=== PATIENT | female | born 1930 | race Caucasian/White ===

== ENCOUNTER 2019-04-19 13:18 | Inpatient (IN) | payer OTHER ==
[~2019-04-19] VITALS: Ht 170.2 cm; Wt 59.0 kg
[~2019-04-19 13:18] MED LIST: AMITIZA 24 MCG24 MC1 PO; AMITIZA8 MCG PO; AMLODIPINE BESYL5 MG PO; BETHANECHOL 5MG5 MG PO; BLOOD PRESURE; CIPRO250 M1 PO; COLACE100 MG PO; EFFEXOR XR75 MG PO; FLAGYL500 MG PO; IBUPROFEN 400400 M2 PO; LEVOTHYROXIN0.075 MG PO; MILK OF MA2400 MG/10 PO; MIRALAX17 GM PO; NASONEX17 GM NASAL; NORCO 5-325 TA1 EACH PO; PROTONIX40 M4 PO; VENLAFAXIN75 MG/1 T2 PO
[2019-04-19 13:20] VITALS: BP 135/75
[2019-04-19 14:58] LABS: ABSOLUTE NEUTROPHILS 11.3 thou/uL (1.4-8.2); BASOPHILS 1.6 % (0.0-2.0); EOSINOPHILS 1.2 % (0.0-3.0); HEMATOCRIT 40.7 % (37.0-47.0); HEMOGLOBIN 13.6 gm/dL (12.0-15.0); MCH 30.9 pg (26.0-34.0); MCHC 33.3 g/dL (28.0-37.0); MCV 92.6 fL (80.0-100.0); MONOCYTES 4.6 % (1.0-8.0); PLATELET COUNT 386 thou/uL (150-400); POLYS 82.6 % (36.0-66.0); RBC 4.39 mil/uL (4.20-5.00); RDW 13.6 % (10.5-14.5); WBC 13.6 thou/uL (4.0-11.0)
[2019-04-19 15:07] LABS: CALCIUM 8.9 mg/dL (8.5-10.1); CREATININE 0.8 mg/dL (0.6-1.0); POTASSIUM 3.7 mmol/L (3.5-5.1)
[2019-04-19 20:34] VITALS: BP 144/75
[2019-04-19 23:45] VITALS: BP 142/70
[2019-04-19 23:55] VITALS: BP 149/90
--- NOTE | 2019-04-20 01:29 | NUR ---
ASSUMED CARE OF PATIENT FROM ER. PATIENT ABLE TO DRINK HALF OF THE BOWEL PREP, HAVING LOOSE STOOLS IN BEDSIDE COMMODE. ABLE TO ANSWER ADMISSION QUESTIONS. NO BLOOD NOTED IN BOWEL MOVEMENT. NPO AFTER MIDNIGHT. POC GOALS ESTABLISHED. WILL CONTINUE TO MONITOR.
[2019-04-20 04:45] VITALS: BP 137/79
[2019-04-20 04:55] VITALS: BP 137/79
[2019-04-20 05:13] LABS: ABSOLUTE NEUTROPHILS 9.7 thou/uL (1.4-8.2); BASOPHILS 0.6 % (0.0-2.0); EOSINOPHILS 2.3 % (0.0-3.0); HEMATOCRIT 37.7 % (37.0-47.0); HEMOGLOBIN 12.7 gm/dL (12.0-15.0); LYMPHOCYTES 11.4 % (24.0-44.0); MCHC 33.6 g/dL (28.0-37.0); MCV 92.2 fL (80.0-100.0); MONOCYTES 6.4 % (1.0-8.0); PLATELET COUNT 385 thou/uL (150-400); POLYS 79.3 % (36.0-66.0); RBC 4.09 mil/uL (4.20-5.00); RDW 13.5 % (10.5-14.5); WBC 12.2 thou/uL (4.0-11.0)
[2019-04-20 05:34] LABS: CALCIUM 8.5 mg/dL (8.5-10.1); CREATININE 0.7 mg/dL (0.6-1.0); MAGNESIUM 1.9 mg/dL (1.8-2.4); POTASSIUM 3.9 mmol/L (3.5-5.1)
[2019-04-20 08:00] VITALS: BP 169/88
--- NOTE | 2019-04-20 12:37 | NUR ---
INITIAL ASSESSMENT: Pt evaluated for d/c planning needs. Reviewed chart and spoke with nurse, pt and spouse. Pt lives in house with spouse and was independent with ADL's. Pt states she is normally in her motorized w/c. Pt states she also has a walker at home. Spouse does most of the cooking because pt is not able to stand to cook. Pt said she had home health in the past, but does not recall name of company. Pt plans on returning home on d/c from hospital. Will remain available to assist as needed.
--- NOTE | 2019-04-20 17:00 | EKG ---
[address] [employer] [place] [address] ELECTROCARDIOGRAM REPORT Name: ZACKERY NOBLE Room #: 443-P ADM IN M.R.#: [id number] Admission: 04/19/19 Attend Phys: Angus Rosas MD Discharge: Date of : [birth year] Report #: [id number] THIS REPORT FOR: //name// [facility] ED Test Date: 2019-04-19 Test Time: 14:15:33 Pat Name: ZACKERY NOBLE Department: Room: [facility] Gender: F Upsetter: WG : 1930 Requested By: Joni Scanlon Order Number: [id number] MD: Aron Atkinson Measurements Intervals [place] Rate: 90 P: 46 TX: 210 QRS: 1 QRSD: 69 T: 147 QT: 412 QTc: 504 Interpretive Statements Sinus rhythm Ventricular premature complex early transition Nonspecific ST/T abnormalities, lateral leads No previous ECG available for comparison Electronically Signed On 04-20-2019 17:00:42 CDT by Aron Atkinson [email or web address] <ELECTRONICALLY SIGNED> By: Aron Atkinson MD 04/20/19 1700 1415 1415 Aron Atkinson MD /HITESH
[2019-04-20 19:45] VITALS: BP 146/75
[2019-04-21 03:20] VITALS: BP 142/76
--- NOTE | 2019-04-21 04:19 | NUR ---
PATIENT ALERT AND ORIENTED X4. DENIES PAIN. IVF INFUSING W/O COMPLICATION. NO BLOOD NOTED. VOIDING PER BEDSIDE COMMODE. COOPERATIVE WITH CARE. WILL MONITOR.
[2019-04-21 07:29] VITALS: BP 179/98
--- NOTE | 2019-04-21 10:48 | NUR ---
PATIENT IN BED HOB UP 30 DEGREES. ATE 100 %OF BREAKFAST. NO PAIN OR RESP DISTRESS AT THIS TIME. AT BEDSIDE. PT WANTS TO DISCHARGE TO HOME. AWAITING DR JORDAN TO SEE PATIENT THIS AM. DR BAUER HERE THIS AM BUT WANTS DR JORDAN TO SEE PATIENT AND LET THIS NURSE KNOW IF PATIENT CAN DISCHARGE.
[2019-04-21] MEDS ORDERED: NORVASC10 MG PO (13:25)
[2019-04-21 13:29] VITALS: BP 179/98
[2019-04-21 13:31] VITALS: BP 179/98
[2019-04-21 13:43] VITALS: BP 179/98
--- NOTE | 2019-04-21 13:48 | NUR ---
DISCHARGE PAPERS GONE OVER WITH PATIENT SIGNED AND COPY IN CHART. IV ACSESS DCD. RX GIVEN TO PATIENT. ALL BELONGINGS PACKED AND SENT WITH PATIENT. LEFT W/C WITH DROP WIRER AND SPOUSE TO FAMILY CAR. NO PAIN OR RESP DISTRESS NOTED AT DISCHARGE
--- NOTE | 2019-04-24 17:06 | PATH ---
[facility] [address] [place] [address] PATHOLOGY RPT PROCEDURE Name: CAROL NOBLE Room #: 443-P DIS IN M.R.#: [id number] Admission: 04/19/19 Date of : [birth year] Discharge: 04/21/19 Report #: [id number] Path Case #: [id number] [facility] Accession Number: [id number] . 01 Material submitted: . colon - BIOPSY OF INFLAMMATION OF HEPATIC FLEXURE TO DESCENDING COLON . 01 Clinical history: . Internal hemorrhoids and ischemic colitis . 02 Diagnosis: Large intestinal mucosa, inflammation from hepatic flexure to descending colon, endoscopic biopsy: - Changes compatible with ischemic colitis, see comment. - Negative for dysplasia or malignancy. (IUV:video game engineer; 04/24/2019) MBR 04/24/2019 1419 Local . 02 Comment: Examination shows scattered foci of denuded surface epithelium, regenerative epithelial atypia where intact overlying a markedly fibrotic lamina propria. The crypts appear atrophic. Fibrin thrombi are not identified within the vessels. There are no explosive ulcers present as well. Overall, findings are compatible with ischemic colitis with patchy involvement. There is no dysplasia or malignancy present. Please correlate clinically. (IUV:video game engineer; 04/24/2019) . 02 Electronically signed: . Navya Prakash MD, Pathologist NPI- [id number] . 01 Gross description: . The specimen is received in formalin, labeled "Carol Noble, BX of inflammation hepatic flexure to descending colon" and consists of multiple fragments of wright tissue measuring 1.5 x 0.8 x 0.2 cm in aggregate which are entirely submitted in A1. (SDY; 04/23/2019) SYU/SYU 04/23/2019 1456 Local . 02 Pathologist provided ICD-10: K52.9 . 02 CPT . 527397 Specimen Comment: A courtesy copy of this report has been sent to [phone] Specimen Comment: [place] [address] PATHOLOGY RPT PROCEDURE Name: CAROL NOBLE Room #: 443-P DIS IN M.R.#: [id number] Admission: 04/19/19 Date of : [birth year] Discharge: 04/21/19 Report #: [id number] Path Case #: [id number] Performed at: [address], [place], [place] [id number] MD Harris Jc MD Phone: [phone] Performed at: [address] [id number] MD Navya Prakash MD Phone: [phone]
== END 2019-04-21 13:56 | disposition home or self-care (01) | DRG 378 ==
LOC: ER 13:18 → EROBS 16:25 → 4S 16:25
PROVIDERS: Emergency Medicine; Nurse Practitioner; ADMIT Internal Medicine
PROC: 0DBL8ZX Excision of Transverse Colon, Via Natural or Artificial Opening Endoscopic, Diagnostic (ICD-10-PCS; principal; 2019-04-20)
DX: K92.2 Gastrointestinal hemorrhage, unspecified (principal); K55.9 Vascular disorder of intestine, unspecified; E87.1 Hypo-osmolality and hyponatremia; I10 Essential (primary) hypertension; E03.9 Hypothyroidism, unspecified; M19.90 Unspecified osteoarthritis, unspecified site; K21.9 Gastro-esophageal reflux disease without esophagitis; K58.1 Irritable bowel syndrome with constipation; F32.9 Major depressive disorder, single episode, unspecified; Z96.1 Presence of intraocular lens; Z98.41 Cataract extraction status, right eye; Z98.42 Cataract extraction status, left eye; Z90.710 Acquired absence of both cervix and uterus; Z88.0 Allergy status to penicillin; Z88.2 Allergy status to sulfonamides; Z87.11 Personal history of peptic ulcer disease; Z90.49 Acquired absence of other specified parts of digestive tract
CPT/HCPCS: 10195; 62110; 62900; 70005

== ENCOUNTER 2019-07-08 15:03 | Emergency (ER) | payer OTHER ==
[~2019-07-08] VITALS: Ht 170.2 cm; Wt 63.5 kg
[~2019-07-08 15:03] MED LIST changes: +NORVASC10 MG PO
[2019-07-08] MEDS ORDERED: VALSARTAN40 MG PO (15:20)
[2019-07-08] MEDS ORDERED: ALPHAGAN P15 ML OPHTHALMIC (15:22)
[2019-07-08] MEDS ORDERED: ULTRAM 50MG TAB50 MG PO (17:09)
[2019-07-08] MEDS ORDERED: VOLTAREN GEL 1100 G1 TOP (17:09)
[2019-07-08 17:43] VITALS: BP 136/79
== END 2019-07-08 17:45 | disposition home or self-care (01) ==
LOC: ER 15:03
DX: M54.5 Low back pain (principal); I10 Essential (primary) hypertension; E03.9 Hypothyroidism, unspecified; M19.90 Unspecified osteoarthritis, unspecified site; K21.9 Gastro-esophageal reflux disease without esophagitis; Z90.89 Acquired absence of other organs; Z98.890 Other specified postprocedural states; Z88.0 Allergy status to penicillin; Z88.2 Allergy status to sulfonamides